=== PATIENT | male | born 1970 | race Caucasian/White ===

== ENCOUNTER 2023-10-10 18:54 | Emergency (ER) | payer OTHER, SELFPAY ==
[2023-10-10 18:55] VITALS: BP 185/99; PULSE 102; RESP 18; TEMP 36.6; O2SAT 98; BMI 31.1
--- NOTE | 2023-10-10 19:36 | ED.VIS.CHEST ---
HPI <NITIN Valentine - Last Filed: 10/10/23 21:13> History of Present Illness Chief Complaint: Chest Pain Narrative Narrative: Patient presenting due to chest pain. He reports that he has had pain to his left lateral rib cage over the past 5 to 6 years intermittently. He saw a stone cleaner for this and was told that it was likely costochondritis, he had a cardiac workup including a stress test and echo at that time which came back unremarkable. He reports that the pain in his side has been worse recently. He also reports that over the past few weeks he has had pressure in his upper sternum that radiates to the left side of his neck intermittently. Nothing seems to exacerbate his symptoms. It does not seem to be associated with exertion. He reports a history of hypertension but has not been on his medication for about a month as he is trying to find a new PCP. He denies any personal cardiac history or any fevers, chills, shortness of breath, nausea, or vomiting. PE Risk Factors: Negative for Recent Travel/Surgery, Recent Immobilization, Prior DVT or PE or Cancer [facility] <NITIN Valentine - Last Filed: 10/10/23 21:13> [facility] Medical History (Updated 10/10/23 @ 21:03 by Cee Gaspar) Hypertension Home Medications lisinopril 20 mg tablet 20 mg PO DAILY #30 tabs 10/10/23 [Rx Last Taken Unknown] meloxicam 7.5 mg tablet 7.5 mg PO DAILY #14 tabs 10/10/23 [Rx Last Taken Unknown] Allergy/AdvReac Type Severity Reaction Status Date / Time No Known Allergies Allergy Verified 10/10/23 18:55 Social History Smoking Status: Unknown if ever smoked ROS <NITIN Valentine - Last Filed: 10/10/23 21:13> ROS ED Constitutional Constitutional ED: Denies chills or fever(s) Cardiovascular Cardiovascular: Reports chest pain; Denies palpitations Respiratory/Chest Respiratory/Chest: Denies cough or dyspnea Gastrointestinal Gastrointestinal: Denies abdominal pain, nausea or vomiting Musculoskeletal Musculoskeletal: Denies arthralgias or myalgias Integumentary Denies rash Neurologic Neurologic: Denies weakness EXAM <NITIN Valentine - Last Filed: 10/10/23 21:13> Physical Exam Const Vital Signs: 10/10/23 18:55 10/10/23 20:54 10/10/23 21:03 Temperature 97.9 F Temperature Source Temporal Pulse Rate 102 H 74 Respiratory Rate 18 14 Respiratory Effort Normal Blood Pressure 185/99 H 142/95 H Blood Pressure Mean 127 110 Pulse Ox 98 97 Oxygen Delivery Method Room Air Room Air 10/10/23 21:03 Temperature 98.6 F Temperature Source Pulse Rate 63 Respiratory Rate 18 Respiratory Effort Blood Pressure 138/95 H Blood Pressure Mean 109 Pulse Ox 95 Oxygen Delivery Method Positive well nourished, well developed and no apparent distress General Appearance ED: well developed HEENT Reports normocephalic and head/scalp atraumatic Mouth ED: Yes moist mucous membranes normal Eyes PERRL and EOMs intact bilaterally Neck full ROM and supple Chest Wall inspection of chest normal Chest Narrative: Pain to palpation to the left lateral rib cage. Resp normal respiratory effort and clear to auscultation bilaterally Cardio regular rate and regular rhythm GI soft to palpation, non-tender, non-distended and no masses Back/Spine normal ROM and normal to inspection Extremity normal to inspection and full ROM Neuro oriented x3, CN's II-XII intact bilaterally, moves all extremities, no focal motor deficits and no sensory deficits noted Sensorium / Orientation: awake and alert Psych mental status grossly normal and thought process normal Skin no rashes or lesions noted and no wounds <Dr. Didier Morton MD - Last Filed: 10/11/23 01:15> Physical Exam Const Vital Signs: 10/10/23 18:55 10/10/23 20:54 10/10/23 21:03 Temperature 97.9 F Temperature Source Temporal Pulse Rate 102 H 74 Respiratory Rate 18 14 Respiratory Effort Normal Blood Pressure 185/99 H 142/95 H Blood Pressure Mean 127 110 Pulse Ox 98 97 Oxygen Delivery Method Room Air Room Air 10/10/23 21:03 Temperature 98.6 F Temperature Source Pulse Rate 63 Respiratory Rate 18 Respiratory Effort Blood Pressure 138/95 H Blood Pressure Mean 109 Pulse Ox 95 Oxygen Delivery Method <NITIN Valentine - Last Filed: 10/10/23 21:13> Heart Score History: Slightly/Non-Suspicious ECG: Normal Age: >45 - <65 years Risk Factors: 1 or 2 Risk Factors Troponin: </= Normal Limit Score: 2 <Dr. Didier Morton MD - Last Filed: 10/11/23 01:15> Heart Score Score: 2 MDM <NITIN Valentine - Last Filed: 10/10/23 21:13> [facility] Narrative Medical decision making narrative: Patient is well-appearing and in no acute distress. He has reproducible tenderness to his left lateral rib cage, consistent with costochondritis. He also has a upper sternal pressure that radiates to the left side of his neck although he reports he is not very concerned about this. CBC, BMP, and troponin are unremarkable. Chest x-ray negative for any acute findings. Patient has a low heart score, I do not feel his pain is cardiac in nature given it is reproducible. His blood pressure is elevated here, he has been out of his lisinopril. Will give him a refill until he can follow-up with his PCP. He will also be given a prescription for meloxicam and work restrictions. He will be discharged home in stable condition. Lab Data Attestation: I reviewed the patient's lab results. Labs: Laboratory Results - last 24 hr 10/10/23 19:40 WBC 7.7 RBC 5.28 Hgb 15.2 Hct 44.9 MCV 85.0 MCH 28.8 MCHC 33.9 RDW Std Deviation 38.4 RDW Coeff of Omar 12.4 Plt Count 267 MPV 10.0 Immature Gran % (Auto) 0.300 Neut % (Auto) 69.5 Lymph % (Auto) 20.0 O'Brien % (Auto) 8.2 Eos % (Auto) 1.3 Baso % (Auto) 0.7 Absolute Neuts (auto) 5.3 Absolute Lymphs (auto) 1.53 Nucleated RBC % 0 Sodium 140 Potassium 3.9 Chloride 107 Carbon Dioxide 25.0 Anion Gap 8 BUN 11 Creatinine 1.10 Estim Creat Clear Calc 76.92 Est GFR (MDRD) Af Amer 91 Est GFR (MDRD) Non-Af 75 BUN/Creatinine Ratio 10.0 Glucose 99 Calcium 9.3 Troponin I High Sens 7 Radiography Chest X-Ray - ED: Read by ED Physician Diagnostic Testing: Clinical Impression(s) from Imaging Studies Chest X-Ray 10/10/23 19:46 IMPRESSION: Normal x-ray examination of the chest. Electronically Signed: Pramod Nash MD at 20:28 EDT , EKG Initial EKG: Comments: 76 bpm, sinus rhythm with occasional PVCs, no ST elevation, reviewed and interpreted by attending ED physician <Dr. Didier Morton MD - Last Filed: 10/11/23 01:15> [facility] Lab Data Labs: Laboratory Results - last 24 hr 10/10/23 19:40 WBC 7.7 RBC 5.28 Hgb 15.2 Hct 44.9 MCV 85.0 MCH 28.8 MCHC 33.9 RDW Std Deviation 38.4 RDW Coeff of Omar 12.4 Plt Count 267 MPV 10.0 Immature Gran % (Auto) 0.300 Neut % (Auto) 69.5 Lymph % (Auto) 20.0 O'Brien % (Auto) 8.2 Eos % (Auto) 1.3 Baso % (Auto) 0.7 Absolute Neuts (auto) 5.3 Absolute Lymphs (auto) 1.53 Nucleated RBC % 0 Sodium 140 Potassium 3.9 Chloride 107 Carbon Dioxide 25.0 Anion Gap 8 BUN 11 Creatinine 1.10 Estim Creat Clear Calc 76.92 Est GFR (MDRD) Af Amer 91 Est GFR (MDRD) Non-Af 75 BUN/Creatinine Ratio 10.0 Glucose 99 Calcium 9.3 Troponin I High Sens 7 Radiography Diagnostic Testing: Clinical Impression(s) from Imaging Studies Chest X-Ray 10/10/23 19:46 IMPRESSION: Normal x-ray examination of the chest. Electronically Signed: Pramod Nash MD at 20:28 EDT , Treatment and Re-Evaluation Comments:: I have personally performed a face to face assessment of the patient and have reviewed the ANTHONY Note. I performed a substantive portion of the visit including all aspects of the following. My bhagat findings include: History is patient concerned about the same pain in the left rib cage/chest wall that he has had for 6 years that is worse in the past week for no particular reason. He states that hurts to move and to push on the affected area. 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 However he did nothing to do different than recently. States he has some mild pressure up into his left base of his neck and he states he is not worried about that, he is worried about the chronic pain. Exam is tenderness in the left chest wall, approximately rib #6 or intercostal space associated with it. There is no rash. He is not superficially tender as if this is zoster. Equal breath sounds bilaterally. Heart regular no tachycardia. Medical Decison Making 2 view chest x-ray my interpretation is normal. His EKG and enzymes are normal. Patient reassured, we will prescribe him meloxicam to try for 2 weeks as well as advised that he follow-up. He is comfortable with that plan. Other additions or changes: [None] Discharge Plan Triage Chief Complaint: Chest Pain ED Midlevel Provider: Rubina Romano ED Provider: Didier Morton Dx/Rx/DC Orders Clinical Impression: Costochondritis, Hypertension Instructions: ED Chest Wall Pain, Costochondritis Prescriptions: New meloxicam 7.5 mg tablet 7.5 mg PO DAILY Qty: 14 0RF lisinopril 20 mg tablet 20 mg PO DAILY Qty: 30 0RF Stand Alone Forms: Work Status Form Primary Care Provider: Care Physician,No Primary Referrals: Malika Burrell MD [Med Staff - Qa Tester] - 5-7 Days Care Physician,No Primary [Primary Care Provider] - Activity Restrictions/Additional Instructions: Please follow-up with PCP and return for any worsening of your symptoms. Disposition Disposition: Home, Self Care Discharge Date/Time: 10/10/23 21:26
--- NOTE | 2023-10-10 19:46 | RAD_ITS ---
STUDY: X-RAY CHEST REASON FOR EXAM: Male, 53 years old. chest pain TECHNIQUE: PA and lateral views of the chest. COMPARISON: None. FINDINGS: The lungs are clear and expanded. There is no demonstrated pleural abnormality. Normal size heart. Normal mediastinum and puneet. Normal visualized pulmonary arteries. Normal visualized aortic arch and descending thoracic aorta. Normal visualized thoracic spine. Healed fracture left clavicle. There is no demonstrated abnormality of the visualized soft tissue structures of the upper abdomen. RAD/Chest PA and Lateral IMPRESSION: Normal x-ray examination of the chest. Electronically Signed: Pramod Nash MD at 20:28 EDT ,
[2023-10-10 19:56] LABS: Absolute Lymphocyte Count 1.53 X10^3/uL (0.83-4.51); Absolute Neutrophil Count 5.3 X10^3/uL (2.0-7.7); Basophil# 0.05 X10^3/uL; Basophil% 0.7 % (0-1); Eosinophils% 1.3 % (0-5); Hematocrit 44.9 % (40-54); Hemoglobin 15.2 g/dL (13.0-16.5); Lymphocyte # 1.53 X10^3/ul (0.83-4.51); Mean Corp Hgb Conc 33.9 g/dL (32-36); Mean Corpuscular Hgb 28.8 pg (27.0-32.0); Monocyte# 0.63 X10^3/uL; Monocyte% 8.2 % (0-10); NRBC Flagged by Analyzer 0 % (0-5); Neutrophil # 5.33 X10^3/uL (2.7-7.7); Neutrophil % 69.5 % (47-70); Platelet Count 267 K/mm3 (150-450); RBC Distribution Width CV 12.4 % (11.6-14.6); RBC Distribution Width SD 38.4 fl (35.1-43.9); Red Blood Count 5.28 M/mm3 (4.6-6.2); White Blood Count 7.7 K/mm3 (4.4-11.0)
[2023-10-10 20:15] LABS: Anion Gap 8 (5-15); BUN 11 mg/dL (7-18); Calcium,Total 9.3 mg/dL (8.5-10.1); Chloride 107 mmol/L (98-107); EST Glomerular Filtration Rate 75 mL/min (>60); Est Glom Filt Rate - Afr Amer 91 mL/min (>60); Estimated Creatinine Clearance 76.92 ml/min; Glucose 99 mg/dL (74-106); Potassium 3.9 mmol/L (3.5-5.1); Sodium Level 140 mmol/L (136-145); Troponin-I HS 7 pg/mL (3.0-78.0)
[2023-10-10 20:54] VITALS: BP 142/95; PULSE 74; RESP 14; O2SAT 97
[2023-10-10 21:03] VITALS: BP 138/95; PULSE 63; RESP 18; TEMP 37; O2SAT 95
== END 2023-10-10 21:26 | disposition home or self-care (01) ==
PROVIDERS: Physician Assistant; Emergency Provider Emergency Medicine; Visit Provider Emergency Medicine
DX: M94.0 Chondrocostal junction syndrome [Tietze] (principal); I10 Essential (primary) hypertension; Z79.899 Other long term (current) drug therapy
CPT/HCPCS: 71046; 80048; 84484; 85025; 93005; 99284; A4216